=== PATIENT | male | born 1995 | race Caucasian/White ===

== ENCOUNTER 2017-08-31 05:46 | Day surgery (SDC) | payer OTHER ==
[2017-08-31] MEDS ORDERED: FENTAnyl 50 MCG/ML VIAL (07:50)
[2017-08-31] MEDS ORDERED: MIDAZOLAM 1 MG/ML 2 ML INJ (07:51)
== END 2017-08-31 11:20 | disposition home or self-care (01) ==
LOC: GIL 05:46
DX: K29.70 Gastritis, unspecified, without bleeding (principal); K44.9 Diaphragmatic hernia without obstruction or gangrene; K21.9 Gastro-esophageal reflux disease without esophagitis
CPT/HCPCS: 43239; 87081